=== PATIENT | female | born 1975 | race Caucasian/White ===

== ENCOUNTER 2025-06-19 18:11 | Emergency (ER) | payer OTHER, SELFPAY ==
[2025-06-19 18:13] VITALS: BP 134/75; PULSE 93; RESP 18; TEMP 35.7; O2SAT 97; BMI 23.4
[2025-06-19 18:34] LABS: Hematocrit 46.1 % (37-47); Hemoglobin 15.5 g/dL (12.0-15.0); Immature Granulocytes Count 0.030 X10^3/uL (0.0-0.0); Mean Corp Hgb Conc 33.6 g/dL (32-36); Mean Corpuscular Volume 88.3 fL (81-99); Mean Platelet Vol. 9.7 fl (6.2-12.0); NRBC Flagged by Analyzer 0 % (0-5); Platelet Count 317 K/mm3 (150-450); RBC Distribution Width CV 12.5 % (11.6-14.6); RBC Distribution Width SD 41.1 fl (35.1-43.9); Red Blood Count 5.22 M/mm3 (4.2-5.4); White Blood Count 11.8 K/mm3 (4.4-11.0)
[2025-06-19 18:47] LABS: Internal QC Validated? YES +Cl - CLEAR BKGD; Pregnancy, Serum, hCG Quali. NEGATIVE Negative; Record Kit Lot#, Serum Preg. 980607
[2025-06-19 19:10] LABS: AST(SGOT) 28 U/L (<=31); Alanine Aminotransfer ALT/SGPT 30 U/L (<=34); Albumin, Serum 4.6 g/dL (3.5-5.0); Alkaline Phosphatase 89 U/L (35-104); Anion Gap 14 (5-15); BUN 11 mg/dL (4-19); BUN/Creat Ratio 13.8 RATIO (10-20); Calcium,Total 9.7 mg/dL (7.6-11.0); Carbon Dioxide 21.5 mmol/L (21.0-32.0); Chloride 100 mmol/L (98-108); Estimated Creatinine Clearance 74.86 ml/min (50-250); Globulin 3.5 g/dL (2.2-4.2); Glucose 91 mg/dL (70-99); Potassium 4.2 mmol/L (3.3-5.1)
[2025-06-19] MEDS: Ketorolac 30 MG/ML Syringe IV (19:48)
[2025-06-19] MEDS: 0.9% Normal Saline (1000mL) 1,000 ML 999 ML IV (19:48)
--- NOTE | 2025-06-19 20:00 | CT_ITS ---
EXAM: CT Abdomen and Pelvis Without Intravenous Contrast CLINICAL INDICATION: RIGHT FLANK PAIN TECHNIQUE: Axial computed tomography images of the abdomen and pelvis without intravenous contrast. This CT exam was performed using one or more of the following dose reduction techniques: automated exposure control, adjustment of the mA and/or kV according to patient size, and/or use of iterative reconstruction technique. COMPARISON: No relevant prior studies available. FINDINGS: LUNG BASES: Lung emphysema. No consolidation. ABDOMEN: LIVER: Hepatomegaly with fatty infiltration. GALLBLADDER AND BILE DUCTS: Unremarkable. No calcified stones. No ductal dilation. PANCREAS: Unremarkable. No ductal dilation. SPLEEN: Unremarkable. No splenomegaly. ADRENALS: Unremarkable. No mass. KIDNEYS AND URETERS: Bilateral renal pelvic calculi, largest measuring up to 6 mm without obstruction. STOMACH AND BOWEL: Fecal retention in the colon consistent with constipation. No obstruction. No mucosal thickening. PELVIS: APPENDIX: No findings to suggest acute appendicitis. BLADDER: Unremarkable. No stones. REPRODUCTIVE: Unremarkable as visualized. ABDOMEN and PELVIS: INTRAPERITONEAL SPACE: Unremarkable. No free air. No significant fluid collection. BONES/JOINTS: No acute fracture. No dislocation. SOFT TISSUES: Umbilical hernia containing fat. VASCULATURE: Unremarkable. No abdominal aortic aneurysm. LYMPH NODES: Unremarkable. No enlarged lymph nodes. CT/Abdomen/Pelvis without Cont IMPRESSION: 1. Hepatomegaly with fatty infiltration. 2. Bilateral nephrolithiasis without hydronephrosis. 3. Fecal retention in the colon consistent with constipation. 4. Umbilical hernia containing fat. Reading Location: [id number]
[2025-06-19] MEDS: HYDROmorphone 0.5 MG/0.5 ML SYRINGE IV (20:47)
[2025-06-19 21:11] LABS: Mucous, Urine 0 SEEN /hpf (<or=2+)
--- NOTE | 2025-06-19 21:15 | ED.VIS.FEGU ---
HPI HPI - Female History of Present Illness Chief Complaint: Flank Pain Narrative Narrative: Chief complaint and HPI: 49-year-old female with past medical history of urolithiasis presents for evaluation of right flank pain. Onset of symptoms yesterday evening and progressively worsening. Associated symptom is nausea and urinary frequency. She denies any fever, chills, shortness of breath, chest pain, dysuria. Does not follow with a urologist given she has not had urolithiasis in years. Review of systems: See HPI Medications: As listed on the chart Allergies: As listed on the chart PFSH: Per chart Vital signs: As listed on the chart. Reviewed. Physical exam: Gen: A&O x3, uncomfortable secondary to pain Head: Normocephalic, atraumatic Eyes: No sclera icterus, conjunctiva clear ENT: Moist mucous membranes CV: RRR, no murmurs Resp: Lungs CTA BL, no w/r/c GI: Abd soft, non-distended, tender to palpation in the right flank, no rebound or rigidity : No CVA tenderness Musc: Full ROM, no deformity Skin: Warm, dry Neuro: Alert, oriented, grossly intact, sensation intact Psych: Cooperative, appropriate mood and affect [facility] Medical History (Updated 06/19/25 @ 22:[address] Adam Maria DO) Kidney stone Home Medications ?Medication ?Instructions ?Recorded ?Last Taken ?Type cephalexin 500 mg capsule 500 mg PO Q6H 7 days #28 caps 06/19/25 Unknown Rx ondansetron 4 mg disintegrating 4 mg PO Q8H PRN PRN Nausea #10 tabs 06/19/25 Unknown Rx tablet Allergy/AdvReac Type Severity Reaction Status Date / Time morphine Allergy Intermediate hives Verified 06/19/25 18:12 Social History Smoking Status: Never smoker EXAM Physical Exam Const Vital Signs: 06/19/25 18:13 06/19/25 22:51 Temperature 96.3 F L 98.3 F Temperature Source Temporal Pulse Rate 93 73 Respiratory Rate 18 16 Blood Pressure 134/75 H 104/64 Blood Pressure Mean 94 77 Pulse Ox 97 97 Oxygen Delivery Method Room Air MDM MDM MDM Narrative Medical decision making narrative: 49-year-old female with past medical history of urolithiasis presents for evaluation of right flank pain. Onset of symptoms yesterday evening and progressively worsening. Associated symptom is nausea and urinary frequency. Differential diagnosis includes but is not limited to urolithiasis, UTI, ZULY. NS bolus, Toradol, Zofran ordered for pain. Laboratory workup already initiated in triage per protocol. I did add on CT abdomen pelvis without contrast. CBC with leukocytosis of 11.8. No anemia. CMP unremarkable without ZULY. Serum negative. On reevaluation, patient states her pain is improved however is requesting more pain medicine. Dilaudid ordered. Chest pain CT abdomen pelvis shows hepatomegaly with fatty infiltration. Bilateral nephrolithiasis without hydronephrosis or urolithiasis. Fecal retention in the colon consistent with constipation. Umbilical hernia containing fat. UA positive for UTI. Urine culture sent. Keflex ordered. Given patient has blood in her urine cannot rule out passed urolithiasis. On reevaluation, patient's pain is improved. She was updated of all the results. She is comfortable with discharging home. Offered narcotic pain medicine but she declined. Ibuprofen and Tylenol as needed. Zofran as needed for nausea and vomiting. Recommended MiraLAX for constipation. Given prescription for Keflex for UTI. Follow-up with PCP and urology. Return back to ED if symptoms change or worsen. She confirmed understand the plan. Patient will discharge. Impression: 1. Right flank pain 2. UTI 3. Constipation Lab Data Labs: Laboratory Results - last 24 hr 06/19/25 06/19/25 18:20 21:03 WBC 11.8 H RBC 5.22 Hgb 15.5 H Hct 46.1 MCV 88.3 MCH 29.7 MCHC 33.6 RDW Std Deviation 41.1 RDW Coeff of Sujit 12.5 Plt Count 317 MPV 9.7 Immature Gran % (Auto) 0.300 Neut % (Auto) 75.5 H Lymph % (Auto) 14.2 L [place] % (Auto) 8.3 Eos % (Auto) 1.2 Baso % (Auto) 0.5 Absolute Neuts (auto) 8.9 H Absolute Lymphs (auto) 1.67 Nucleated RBC % 0 Sodium 135 Potassium 4.2 Chloride 100 Carbon Dioxide 21.5 Anion Gap 14 BUN 11 Creatinine 0.80 Estim Creat Clear Calc 74.86 Est GFR (MDRD) Non-Af 90 BUN/Creatinine Ratio 13.8 Glucose 91 Calcium 9.7 Total Bilirubin 0.76 AST 28 ALT 30 Alkaline Phosphatase 89 Total Protein 8.0 Albumin 4.6 Globulin 3.5 Albumin/Globulin Ratio 1.3 Serum , Qual NEGATIVE Urine Color Yellow Urine Clarity Turbid Urine pH 6.0 Ur Specific Holiday 1.010 Urine Protein 100 H Urine Glucose (UA) Normal Urine Ketones Negative Urine Occult Blood 250 H Urine Nitrite Positive H Urine Bilirubin 1 H Urine Urobilinogen 1 H Ur Leukocyte Esterase 500 H Urine RBC 0-5 SEEN Urine WBC >100 SEEN Ur Squamous Epith Cells 0-5 SEEN Urine Bacteria 4+ Urine Mucus 0 SEEN Radiography Diagnostic Testing: Clinical Impression(s) from Imaging Studies Abdomen/Pelvis CT 06/19/25 20:00 IMPRESSION: 1. Hepatomegaly with fatty infiltration. 2. Bilateral nephrolithiasis without hydronephrosis. 3. Fecal retention in the colon consistent with constipation. 4. Umbilical hernia containing fat. Reading Location: [facility] Discharge Plan Triage Chief Complaint: Flank Pain ED Provider: Adam Maria Dx/Rx/DC Orders Clinical Impression: UTI (urinary tract infection), Constipation Instructions: Urinary Tract Infections in Women, ED Constipation (Adult), ED Flank Pain with Uncertain Cause Prescriptions: New cephalexin 500 mg capsule 500 mg PO Q6H 7 Days Qty: 28 0RF ondansetron 4 mg tablet,disintegrating 4 mg PO Q8H PRN PRN (Reason: Nausea) Qty: 10 0RF Primary Care Provider: Frankie Dailey Referrals: Ayo Moses MD [Med Staff - Active Staff, Urology] - 3-5 Days Frankie Dailey MD [Primary Care Provider, Family Practice] - 3-5 Days Activity Restrictions/Additional Instructions: Follow-up with primary care physician and urology. You were given your first dose of antibiotics here. Recommend MiraLAX for constipation. Return back to ED if symptoms change or worsen. Zofran as needed for nausea. Tylenol and Motrin as needed for pain Print Language: [place] Disposition Disposition: Home, Self Care Discharge Date/Time: 06/19/25 22:57
[2025-06-19 21:26] LABS: Color, Urine Yellow (Yellow); Glucose, Dipstick Normal (Normal); Ketone-Dipstick Negative (Negative); Leukocyte Esterase-Dipstick 500 /ul (Negative); Nitrite-Dipstick Positive (Negative); Occult Blood-Urine 250 /ul (Negative); Protein-Dipstick 100 mg/dl (Negative); Specific Gravity, Urine 1.010 (1.002-1.030)
[2025-06-19 21:38] LABS: Urine Bilirubin Dipstick 1 mg/dL (Negative)
--- NOTE | 2025-06-19 22:37 | ED.RN ---
called lab to inquire about UA
[2025-06-19 22:44] LABS: Squamous Epithelial Cells - UA 0-5 SEEN /hpf (5-10)
[2025-06-19 22:45] LABS: Red Blood Cells-Urine 0-5 SEEN /hpf (0-5)
[2025-06-19 22:51] VITALS: BP 104/64; PULSE 73; RESP 16; TEMP 36.8; O2SAT 97
== END 2025-06-19 22:57 | disposition home or self-care (01) ==
PROVIDERS: Emergency Provider Surgery; PCP Family Medicine; Visit Provider Surgery
DX: N39.0 Urinary tract infection, site not specified (principal); N20.0 Calculus of kidney; K59.00 Constipation, unspecified; K42.9 Umbilical hernia without obstruction or gangrene; D72.829 Elevated white blood cell count, unspecified
CPT/HCPCS: 74176; 80053; 81001; 84703; 85025; 87077; 87086; 87088; 87186; 96374; 96375; 99283; A4216; J2405